=== PATIENT | female | born 1970 | race Hispanic/Latino ===

== ENCOUNTER 2018-01-13 02:26 | Inpatient (IN) | payer MEDICARE ==
[2018-01-13] MEDS ORDERED: NACL 0.9% 1000 ML IV ONE (02:52)
[2018-01-13 03:21] LABS: Basophils # (Auto) 0.1 K/mm3 (0.0-0.1); Basophils % (Auto) 0.7 % (0.0-1.8); Eosinophils # (Auto) 0.1 K/mm3 (0.0-0.4); Eosinophils % (Auto) 0.6 % (0.0-4.3); Hematocrit 40.7 % (30.3-42.9); Hemoglobin 13.6 gm/dl (10.1-14.3); Lymphocytes % (Auto) 7.7 % (13.4-35.0); Mean Corpuscular HGB Conc 34 % (30-34); Mean Corpuscular Hemoglobin 30 pg (28-32); Mean Corpuscular Volume 90 fl (79-97); Monocytes # (Auto) 1.1 K/mm3 (0.0-0.8); Monocytes % (Auto) 8.7 % (0.0-7.3); Platelet Count 183 K/mm3 (140-440); Red Blood Count 4.52 M/mm3 (3.65-5.03); Red Cell Distribution Width 14.1 % (13.2-15.2)
[2018-01-13] MEDS ORDERED: XYLOCAINE 1%/ EPI 1:100,000 INFILTRATI ONE (03:34)
[2018-01-13 03:39] LABS: INR 0.76 (0.87-1.13)
--- NOTE | 2018-01-13 03:39 | Emergency Department Report ---
ED Fall HPI - General Chief Complaint: Fall Stated Complaint: LACERATION ABOVE RT EYE Time Seen by Provider: 01/13/18 02:54 Source: patient, EMS, old records reviewed Mode of arrival: Stretcher Limitations: No Limitations - History of Present Illness Initial Comments: 47-year-old female with a past medical history of GERD, sleep apnea, hypertension, traumatic brain injury, and elevated cholesterol and recent UTI [place] the hospital [place]. Chronic right knee pain, wears a knee brace typically, and uses a walker and has chronic intermittent unsteady gait due to previous closed head injury. Patient also has trazodone prior to going to sleep. Patient attempted to ambulate to the bathroom without her knee brace or walker and fell striking her right brow. No LOC reported. She presents with a laceration to her right brow without acute hemorrhage. Patient denies blurred vision. She has mild right brow pain radiated 1/10 in intensity with the palpation. She denies headache, neck pain, chest pain, or abdominal pain. Some mild increase in her chronic right knee pain reported. Patient noted to have a low-grade temperature in the ED and states she did again experiencing chills today and was recently treated for a UTI. She denies cough, sore throat, nausea, vomiting, or diarrhea. Last tetanus was 2 years ago. - Related Data Allergies Allergy/AdvReac Type Severity Reaction Status Date / Time No Known Allergies Allergy Verified 01/13/18 02:48 ED Review of Systems ROS: Stated complaint: LACERATION ABOVE RT EYE Other details as noted in HPI Comment: All other systems reviewed and negative ED Past Medical Hx - Past Medical History Previous Medical History?: Yes Hx Hypertension: Yes Hx GERD: Yes Additional medical history: traumatic brain injury. High cholestrol. uti. sleep apnea - Social History Smoking Status: Never Smoker Substance Use Type: Other ED Physical Exam - General Limitations: Physical Limitation - Other Other exam information: General: No limitations, patient is alert in no acute distress Head exam: Atraumatic, normocephalic Eyes exam: Normal appearance, pupils equal reactive to light, extraocular movements intact. Right brow laceration 4 cm ENT: Moist mucous membrane, normal oropharynx Neck exam: Normal inspection, full range of motion Respiratory exam: Clear to auscultation bilateral, no wheezes, rales, crackles Cardiovascular: Normal rate and rhythm, normal heart sounds Abdomen: Soft, nondistended, and nontender, with normal bowel sounds, no rebound, or guarding Extremity: Generalized right knee tenderness with mild swelling.Pain with flexion Back: Normal Inspection, full range of motion, no tenderness Neurologic: Alert, oriented x3, cranial nerves intact, no motor or sensory deficit Psychiatric: normal affect, normal mood Skin: right brow laceration ED Course Vital Signs 01/13/18 01/13/18 01/13/18 02:41 02:45 03:00 Temperature 100.3 F H Pulse Rate 110 H Respiratory 18 Rate Blood Pressure 145/69 141/74 141/74 O2 Sat by Pulse 87 94 92 Oximetry 01/13/18 01/13/18 01/13/18 03:15 03:30 03:45 Temperature Pulse Rate Respiratory 16 Rate Blood Pressure 123/71 124/76 O2 Sat by Pulse 87 90 Oximetry 01/13/18 01/13/18 01/13/18 03:52 04:00 04:07 Temperature 101.4 F H Pulse Rate Respiratory 18 Rate Blood Pressure 124/76 O2 Sat by Pulse 92 Oximetry 01/13/18 01/13/18 01/13/18 04:09 04:15 04:30 Temperature Pulse Rate 104 H 105 H 111 H Respiratory 32 H 15 Rate Blood Pressure 129/77 136/83 O2 Sat by Pulse 92 91 Oximetry 01/13/18 04:45 Temperature Pulse Rate 108 H Respiratory 25 H Rate Blood Pressure 134/79 O2 Sat by Pulse 97 Oximetry - Laceration /Wound Repair Right Face Wound Location: face Wound Length (cm): 4 (cm) Wound's Depth, Shape: linear Wound Explored: clean Irrigated w/ Saline (ccs): 50 Anesthesia: Lidocaine w/ Epi Volume Anesthetic (ccs): 5 Wound Debrided: minimal Wound Repaired With: sutures Suture Size/Type: 5:0, proline Number of Sutures: 9 Sterile Dressing Applied?: Yes ED Medical Decision Making - Lab Data Result diagrams: 01/13/18 03:00 01/13/18 03:00 Lab Results 01/13/18 01/13/18 01/13/18 Range/Units 03:00 03:00 03:00 WBC 12.6 H (4.5-11.0) K/mm3 RBC 4.52 (3.65-5.03) M/mm3 Hgb 13.6 (10.1-14.3) gm/dl Hct 40.7 (30.3-42.9) % MCV 90 (79-97) fl MCH 30 (28-32) pg MCHC 34 (30-34) % RDW 14.1 (13.2-15.2) % Plt Count 183 (140-440) K/mm3 Lymph % (Auto) 7.7 L (13.4-35.0) % [place] % (Auto) 8.7 H (0.0-7.3) % Eos % (Auto) 0.6 (0.0-4.3) % Baso % (Auto) 0.7 (0.0-1.8) % Lymph # 1.0 L (1.2-5.4) K/mm3 [place] # 1.1 H (0.0-0.8) K/mm3 Eos # 0.1 (0.0-0.4) K/mm3 Baso # 0.1 (0.0-0.1) K/mm3 Seg Neutrophils % 82.3 H (40.0-70.0) % Seg Neutrophils # 10.4 H (1.8-7.7) K/mm3 PT (12.2-14.9) Sec. INR (0.87-1.13) POC ABG pH (7.35-7.45) POC ABG pCO2 (35-45) POC ABG pO2 (80-105) POC ABG HCO3 POC ABG Total CO2 POC ABG O2 Sat POC ABG Base Excess VBG pH (7.320-7.420) FiO2 % Sodium 141 (137-145) mmol/L Potassium 3.6 (3.6-5.0) mmol/L Chloride 100.4 (98-107) mmol/L Carbon Dioxide 28 (22-30) mmol/L Anion Gap 16 mmol/L BUN 16 (7-17) mg/dL Creatinine 0.7 (0.7-1.2) mg/dL Estimated GFR > 60 ml/min BUN/Creatinine Ratio 23 % Glucose 121 H (65-100) mg/dL Lactic Acid 1.60 (0.7-2.0) mmol/L Calcium 8.9 (8.4-10.2) mg/dL Total Bilirubin 0.40 (0.1-1.2) mg/dL AST 24 (5-40) units/L ALT 41 (7-56) units/L Alkaline Phosphatase 83 (35-129) units/L Total Protein 6.1 L (6.3-8.2) g/dL Albumin 4.0 (3.9-5) g/dL Albumin/Globulin Ratio 1.9 % HCG, Qual (Negative) Urine Color (Yellow) Urine Turbidity (Clear) Urine pH (5.0-7.0) Ur Specific [place] (1.003-1.030) Urine Protein (Negative) mg/dL Urine Glucose (UA) (Negative) mg/dL Urine Ketones (Negative) mg/dL Urine Blood (Negative) Urine Nitrite (Negative) Urine Bilirubin (Negative) Urine Urobilinogen (<2.0) mg/dL Ur Leukocyte Esterase (Negative) Urine WBC (Auto) (0.0-6.0) /HPF Urine RBC (Auto) (0.0-6.0) /HPF Urine Bacteria (Auto) (Negative) /HPF Calcium Oxalate Crystal Urine Mucus /HPF 01/13/18 01/13/18 01/13/18 Range/Units 03:00 03:00 03:00 WBC (4.5-11.0) K/mm3 RBC (3.65-5.03) M/mm3 Hgb (10.1-14.3) gm/dl Hct (30.3-42.9) % MCV (79-97) fl MCH (28-32) pg MCHC (30-34) % RDW (13.2-15.2) % Plt Count (140-440) K/mm3 Lymph % (Auto) (13.4-35.0) % [place] % (Auto) (0.0-7.3) % Eos % (Auto) (0.0-4.3) % Baso % (Auto) (0.0-1.8) % Lymph # (1.2-5.4) K/mm3 [place] # (0.0-0.8) K/mm3 Eos # (0.0-0.4) K/mm3 Baso # (0.0-0.1) K/mm3 Seg Neutrophils % (40.0-70.0) % Seg Neutrophils # (1.8-7.7) K/mm3 PT 11.0 L (12.2-14.9) Sec. INR 0.76 L (0.87-1.13) POC ABG pH (7.35-7.45) POC ABG pCO2 (35-45) POC ABG pO2 (80-105) POC ABG HCO3 POC ABG Total CO2 POC ABG O2 Sat POC ABG Base Excess VBG pH 7.413 (7.320-7.420) FiO2 % Sodium (137-145) mmol/L Potassium (3.6-5.0) mmol/L Chloride (98-107) mmol/L Carbon Dioxide (22-30) mmol/L Anion Gap mmol/L BUN (7-17) mg/dL Creatinine (0.7-1.2) mg/dL Estimated GFR ml/min BUN/Creatinine Ratio % Glucose (65-100) mg/dL Lactic Acid (0.7-2.0) mmol/L Calcium (8.4-10.2) mg/dL Total Bilirubin (0.1-1.2) mg/dL AST (5-40) units/L ALT (7-56) units/L Alkaline Phosphatase (35-129) units/L Total Protein (6.3-8.2) g/dL Albumin (3.9-5) g/dL Albumin/Globulin Ratio % HCG, Qual Negative (Negative) Urine Color (Yellow) Urine Turbidity (Clear) Urine pH (5.0-7.0) Ur Specific [place] (1.003-1.030) Urine Protein (Negative) mg/dL Urine Glucose (UA) (Negative) mg/dL Urine Ketones (Negative) mg/dL Urine Blood (Negative) Urine Nitrite (Negative) Urine Bilirubin (Negative) Urine Urobilinogen (<2.0) mg/dL Ur Leukocyte Esterase (Negative) Urine WBC (Auto) (0.0-6.0) /HPF Urine RBC (Auto) (0.0-6.0) /HPF Urine Bacteria (Auto) (Negative) /HPF Calcium Oxalate Crystal Urine Mucus /HPF 01/13/18 01/13/18 Range/Units 03:52 04:52 WBC (4.5-11.0) K/mm3 RBC (3.65-5.03) M/mm3 Hgb (10.1-14.3) gm/dl Hct (30.3-42.9) % MCV (79-97) fl MCH (28-32) pg MCHC (30-34) % RDW (13.2-15.2) % Plt Count (140-440) K/mm3 Lymph % (Auto) (13.4-35.0) % [place] % (Auto) (0.0-7.3) % Eos % (Auto) (0.0-4.3) % Baso % (Auto) (0.0-1.8) % Lymph # (1.2-5.4) K/mm3 [place] # (0.0-0.8) K/mm3 Eos # (0.0-0.4) K/mm3 Baso # (0.0-0.1) K/mm3 Seg Neutrophils % (40.0-70.0) % Seg Neutrophils # (1.8-7.7) K/mm3 PT (12.2-14.9) Sec. INR (0.87-1.13) POC ABG pH 7.440 (7.35-7.45) POC ABG pCO2 42.1 (35-45) POC ABG pO2 45 L (80-105) POC ABG HCO3 28.6 POC ABG Total CO2 30 POC ABG O2 Sat 82 POC ABG Base Excess 4 VBG pH (7.320-7.420) FiO2 21 % Sodium (137-145) mmol/L Potassium (3.6-5.0) mmol/L Chloride (98-107) mmol/L Carbon Dioxide (22-30) mmol/L Anion Gap mmol/L BUN (7-17) mg/dL Creatinine (0.7-1.2) mg/dL Estimated GFR ml/min BUN/Creatinine Ratio % Glucose (65-100) mg/dL Lactic Acid (0.7-2.0) mmol/L Calcium (8.4-10.2) mg/dL Total Bilirubin (0.1-1.2) mg/dL AST (5-40) units/L ALT (7-56) units/L Alkaline Phosphatase (35-129) units/L Total Protein (6.3-8.2) g/dL Albumin (3.9-5) g/dL Albumin/Globulin Ratio % HCG, Qual (Negative) Urine Color Yellow (Yellow) Urine Turbidity Clear (Clear) Urine pH 7.0 (5.0-7.0) Ur Specific [place] 1.009 (1.003-1.030) Urine Protein <15 mg/dl (Negative) mg/dL Urine Glucose (UA) Neg (Negative) mg/dL Urine Ketones Neg (Negative) mg/dL Urine Blood Sm (Negative) Urine Nitrite Neg (Negative) Urine Bilirubin Neg (Negative) Urine Urobilinogen < 2.0 (<2.0) mg/dL Ur Leukocyte Esterase Sm (Negative) Urine WBC (Auto) 25.0 H (0.0-6.0) /HPF Urine RBC (Auto) 7.0 (0.0-6.0) /HPF Urine Bacteria (Auto) 1+ (Negative) /HPF Calcium Oxalate Crystal Few Urine Mucus Few /HPF - EKG Data -: EKG Interpreted by Me (old anterior infarct) EKG shows normal: sinus rhythm, axis (qrs -31), QRS complexes (qrsd 86), ST-T waves (flat lat t wave) Rate: normal - Radiology Data Radiology results: report reviewed EXAM: XR CHEST 1V AP HISTORY: fever TECHNIQUE: A portable supine view of the chest was obtained. FINDINGS: The heart size and vascularity appear normal. There are no localized infiltrates. There is a nonspecific 5.2 mm nodule in the left lung base. Pleural fluid is not seen. The skeletal structures are well- maintained IMPRESSION: No acute infiltrates or congestion. Non specific 5.2 mm nodule in the left lung base. Repeat chest x-ray is recommended 6 months to confirm stability. EXAM: XR KNEE 3V RT HISTORY: chronic right knee pain, recent fall TECHNIQUE: Three views of the right knee were obtained. FINDINGS: There is no evidence of fracture or joint effusion. All 3 compartments are well maintained. IMPRESSION: Within normal limits. EXAM: CT HEAD/BRAIN WO CON HISTORY: head injury fall TECHNIQUE: Routine axial imaging was obtained of the brain without IV contrast. FINDINGS: There is volume loss in both frontal lobes with areas of encephalomalacia in both frontal lobes. There is no evidence of acute stroke or hemorrhage. The ventricular system is normal in size and is symmetric. The basal cisterns appear normal. The visualized sinuses are clear. The mastoid air cells are well pneumatized. There is no evidence of skull fracture. IMPRESSION: Bifrontal volume loss with encephalomalacia in both frontal lobes. No acute intracranial process otherwise. FINAL REPORT EXAM: CT ORBIT/EAR/FOSSA WO CON HISTORY: right brow laceration, fall TECHNIQUE: Routine axial imaging was obtained through the orbits without IV contrast with sagittal and coronal reconstructions. FINDINGS: There is right- sided preseptal soft tissue swelling extending to the right pre frontal area. There is no evidence of fracture. The intraorbital structures appear normal bilaterally. There is no evidence of foreign body. The sinuses reveal mucosal thickening in the right maxillary sinus. IMPRESSION: Right-sided preseptal soft tissue swelling extending to the right pre frontal area. No evidence of right- sided orbital fracture or radiopaque foreign body. Mucosal thickening in the right maxillary sinus. - Medical Decision Making Present initially presented fall and has history of chronic unsteady gait due to previous head injury and requires both a knee brace and walker when ambulating. Patient had neither of these assisted devices when she fell today. Right brow laceration was repaired and recommended suture removal in 5 days. She presented with a fever and UA positive for UTI. Patient given Tylenol, Rocephin, and treated as per sepsis protocol with 30 mL per KG bolus of NS. Lactic acid is normal and patient is not presenting with septic shock. Cultures pending. Nurse noted that room air saturation was in the high 80s therefore ABG obtained on room air was obtained. ABG revealed O2 saturation of 82% and a PO2 of 45 without signs of acid base disturbance. Patient has a history of sleep apnea but no history of home oxygen use. CXR with incidental nodule but no acute findings. D-dimer was less than [address] angiogram was not performed and patient will be admitted to the hospital for further workup and evaluation. - Differential Diagnosis fever, uti, pneumonia, pe Critical Care Time: No Critical care attestation.: If time is entered above; I have spent that time in minutes in the direct care of this critically ill patient, excluding procedure time. ED Disposition Clinical Impression: Hypoxia, History of traumatic brain injury, Fever, Sleep apnea Fall Qualifiers: Encounter type: initial encounter Qualified Code(s): W19.XXXA - Unspecified fall, initial encounter UTI (urinary tract infection) Qualifiers: Encounter type: initial encounter Chronic knee pain Qualifiers: Laterality: right Qualified Code(s): M25.561 - Pain in right knee; G89.29 - Other chronic pain Laceration of brow without complication Qualifiers: Encounter type: initial encounter Qualified Code(s): S01.81XA - Laceration without foreign body of other part of head, initial encounter Disposition: [id number] OP ADMIT IP TO THIS HOSP Is pt being admited?: Yes Condition: Stable Time of Disposition: 05:38 (Dr Dawkins/hosp)
[2018-01-13 03:42] LABS: Alanine Aminotransferase 41 units/L (7-56); BUN/Creatinine Ratio 23; Blood Urea Nitrogen 16 mg/dL (7-17); Calcium 8.9 mg/dL (8.4-10.2); Hemolysis Index 9
[2018-01-13] MEDS ORDERED: TYLENOL PO ONE (03:50)
[2018-01-13] MEDS ORDERED: ROCEPHIN/NS 1 GM/50 ML 1 GM/50 ML BAG IV ONE (04:02)
[2018-01-13 04:17] LABS: Bacteria,Urine 1+ /HPF (Negative); Bilirubin,Urine NEG (Negative); Blood,Urine SM (Negative); Calcium Oxalate Crystals,Urine FEW; Color,Urine Yellow (Yellow); Mucus,Urine FEW /HPF; Protein,Urine <15 mg/dL mg/dL (Negative); Urobilinogen,Urine < 2.0 mg/dL (<2.0)
--- NOTE | 2018-01-13 04:21 | XRay Report ---
FINAL REPORT EXAM: XR CHEST 1V AP HISTORY: fever TECHNIQUE: A portable supine view of the chest was obtained. FINDINGS: The heart size and vascularity appear normal. There are no localized infiltrates. There is a nonspecific 5.2 mm nodule in the left lung base. Pleural fluid is not seen. The skeletal structures are well-maintained IMPRESSION: No acute infiltrates or congestion. Non specific 5.2 mm nodule in the left lung base. Repeat chest x-ray is recommended 6 months to confirm stability.
--- NOTE | 2018-01-13 04:24 | XRay Report ---
FINAL REPORT EXAM: XR KNEE 3V RT HISTORY: chronic right knee pain, recent fall TECHNIQUE: Three views of the right knee were obtained. FINDINGS: There is no evidence of fracture or joint effusion. All 3 compartments are well maintained. IMPRESSION: Within normal limits.
--- NOTE | 2018-01-13 05:26 | Cat Scan Report ---
FINAL REPORT EXAM: CT ORBIT/EAR/FOSSA WO CON HISTORY: right brow laceration, fall TECHNIQUE: Routine axial imaging was obtained through the orbits without IV contrast with sagittal and coronal reconstructions. FINDINGS: There is right-sided preseptal soft tissue swelling extending to the right pre frontal area. There is no evidence of fracture. The intraorbital structures appear normal bilaterally. There is no evidence of foreign body. The sinuses reveal mucosal thickening in the right maxillary sinus. IMPRESSION: Right-sided preseptal soft tissue swelling extending to the right pre frontal area. No evidence of right-sided orbital fracture or radiopaque foreign body. Mucosal thickening in the right maxillary sinus.
--- NOTE | 2018-01-13 05:28 | Cat Scan Report ---
FINAL REPORT EXAM: CT HEAD/BRAIN WO CON HISTORY: head injury fall TECHNIQUE: Routine axial imaging was obtained of the brain without IV contrast. FINDINGS: There is volume loss in both frontal lobes with areas of encephalomalacia in both frontal lobes. There is no evidence of acute stroke or hemorrhage. The ventricular system is normal in size and is symmetric. The basal cisterns appear normal. The visualized sinuses are clear. The mastoid air cells are well pneumatized. There is no evidence of skull fracture. IMPRESSION: Bifrontal volume loss with encephalomalacia in both frontal lobes. No acute intracranial process otherwise.
[2018-01-13] MEDS ORDERED: DILAUDID IV PRN (07:32)
[2018-01-13] MEDS ORDERED: PROVENTIL IH PRN (07:39)
[2018-01-13] MEDS ORDERED: NON-FORMULARY (Pregabalin [Lyrica] 150 MG) PO SCH (10:00)
[2018-01-13] MEDS: NORVASC PO SCH (10:40)
[2018-01-13] MEDS: PRAVACHOL PO SCH (10:41)
[2018-01-13] MEDS: LYRICA PO SCH ×4 (12:51→22:22)
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
[2018-01-13] MEDS: DUONEB *Not for PRN Use IH SCH ×3 (15:19→21:24)
[2018-01-13] MEDS: TYLENOL PO PRN (19:13)
[2018-01-13] MEDS: NACL 0.9% 1000 ML 1,000 ML IV SCH (20:50)
[2018-01-14] MEDS: TYLENOL PO PRN ×3 (01:41→23:00)
[2018-01-14 02:30] LABS: Hematocrit 39.1 % (30.3-42.9); Hemoglobin 12.7 gm/dl (10.1-14.3); Mean Corpuscular HGB Conc 33 % (30-34); Mean Corpuscular Hemoglobin 30 pg (28-32); Mean Corpuscular Volume 91 fl (79-97); Red Blood Count 4.29 M/mm3 (3.65-5.03); Red Cell Distribution Width 14.1 % (13.2-15.2)
[2018-01-14 02:38] LABS: Platelet Count 144 K/mm3 (140-440)
[2018-01-14] MEDS: DUONEB *Not for PRN Use IH SCH ×4 (05:23→21:20)
[2018-01-14] MEDS: NACL 0.9% 1000 ML 1,000 ML IV SCH ×2 (05:38→23:48)
[2018-01-14 06:13] LABS: BUN/Creatinine Ratio 21; Blood Urea Nitrogen 15 mg/dL (7-17); Calcium 8.5 mg/dL (8.4-10.2); Hemolysis Index 59
[2018-01-14] MEDS ORDERED: ROCEPHIN/NS 1 GM/50 ML 1 GM/50 ML BAG IV SCH (10:00)
[2018-01-14] MEDS: PRAVACHOL PO SCH (10:36)
[2018-01-14] MEDS: NORVASC PO SCH (10:36)
[2018-01-14] MEDS: LYRICA PO SCH ×4 (10:36→23:43)
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
[2018-01-14] MEDS: LEVAQUIN 750MG/150ML 750 MG/150 ML BAG IV SCH (12:38)
[2018-01-15 06:36] VITALS: BP 118/71
[2018-01-15 08:37] LABS: Hematocrit 37.6 % (30.3-42.9); Mean Corpuscular HGB Conc 35 % (30-34); Mean Corpuscular Hemoglobin 31 pg (28-32); Mean Corpuscular Volume 89 fl (79-97); Platelet Count 155 K/mm3 (140-440); Red Blood Count 4.25 M/mm3 (3.65-5.03); Red Cell Distribution Width 14.2 % (13.2-15.2)
[2018-01-15] MEDS: DUONEB *Not for PRN Use IH SCH ×2 (08:38→12:40)
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
[2018-01-15 09:15] LABS: BUN/Creatinine Ratio 20; Blood Urea Nitrogen 10 mg/dL (7-17); Calcium 8.6 mg/dL (8.4-10.2); Hemolysis Index 50
[2018-01-15] MEDS: LEVAQUIN 750MG/150ML 750 MG/150 ML BAG IV SCH (09:58)
[2018-01-15] MEDS: LYRICA PO SCH (09:58)
[2018-01-15] MEDS: PRAVACHOL PO SCH (09:58)
[2018-01-15] MEDS: NORVASC PO SCH (09:59)
== END 2018-01-15 11:45 | disposition home health service (06) | DRG 871 ==
LOC: ED 02:26 → 3A 07:32
PROVIDERS: ADMIT Internal Medicine; ATTEND Internal Medicine
PROC: 4A033R1 Measurement of Arterial Saturation, Peripheral, Percutaneous Approach (ICD-10-PCS; principal; 2018-01-13)
PROC: 08QNXZZ Repair Right Upper Eyelid, External Approach (ICD-10-PCS; 2018-01-13)
DX: A41.51 Sepsis due to Escherichia coli [E. coli] (principal); J96.01 Acute respiratory failure with hypoxia; R45.851 Suicidal ideations; N30.00 Acute cystitis without hematuria; G93.89 Other specified disorders of brain; S01.111A Laceration without foreign body of right eyelid and periocular area, initial encounter; W18.39XA Other fall on same level, initial encounter; Y93.89 Activity, other specified; Y92.89 Other specified places as the place of occurrence of the external cause; Y99.8 Other external cause status; R26.0 Ataxic gait; G47.30 Sleep apnea, unspecified; E87.6 Hypokalemia; I10 Essential (primary) hypertension; K21.9 Gastro-esophageal reflux disease without esophagitis; Z87.820 Personal history of traumatic brain injury; G89.29 Other chronic pain; M25.561 Pain in right knee; E78.00 Pure hypercholesterolemia, unspecified
CPT/HCPCS: 36415; 70450; 70480; 71045; 80048; 80053; 81001; 82140; 82803; 82805; 84703; 85025; 85027; 85379; 85610; 86850; 86900; 86901; 87040; 87076; 87086; 87186; 93005; 93010; 94640; 94760; A9270-GY; J0696; J1956; J7030